=== PATIENT | female | born 1980 ===

== ENCOUNTER 2023-09-20 09:25 | Day surgery (SDC) | payer OTHER ==
[~2023-09-20] VITALS: Ht 157.5 cm; Wt 68.5 kg
[2023-09-20] MEDS ORDERED: fentaNYL citrate 0.05 MG/ML VIAL ONE (12:29)
[2023-09-20] MEDS ORDERED: LIDOCAINE 2% 100 MG/5 ML UJET TP ONE (12:29)
[2023-09-20] MEDS ORDERED: MIDAZOLAM 5 MG/5 ML VIAL ONE (12:29)
[2023-09-20] MEDS: fentaNYL citrate 0.05 MG/ML VIAL IVP ONE (12:58)
== END 2023-09-20 14:17 | disposition home or self-care (01) ==
LOC: MDS 09:25 → MMU 10:57 → MDS 14:17
PROVIDERS: ATTEND Internal Medicine Gastroenterology
DX: Z12.11 Encounter for screening for malignant neoplasm of colon (principal); Z87.891 Personal history of nicotine dependence; Z98.51 Tubal ligation status; Z88.1 Allergy status to other antibiotic agents; Z79.899 Other long term (current) drug therapy; Z98.890 Other specified postprocedural states
CPT/HCPCS: 45378; J3010; J2250